=== PATIENT | male | born 1960 | race Caucasian/White ===

== ENCOUNTER 2019-03-17 17:48 | Inpatient (IN) | payer MEDICAID ==
[~2019-03-17] VITALS: Ht 177.8 cm; Wt 86.3 kg
[2019-03-17 18:49] LABS: BASOPHILS % (AUTO) 0.2 % (0-1); EOSINOPHILS % (AUTO) 0.2 % (0-6); HEMATOCRIT 37.1 % (42.0-52.0); HEMOGLOBIN 12.6 g/dl (14.0-17.9); LYMPHOCYTES # (AUTO) 1.6 X10'3 (1.1-4.8); LYMPHOCYTES % (AUTO) 7.7 % (21-51); MEAN CORPUSCULAR HEMOGLOBIN 30.8 PG (27.0-31.0); MEAN CORPUSCULAR VOLUME 90.6 FL (78-98); MEAN PLATELET VOLUME 7.2 FL (7.4-10.4); MONOCYTES # (AUTO) 1.3 X10'3 (0-0.9); MONOCYTES % (AUTO) 6.6 % (2-12); NEUTROPHILS # (AUTO) 17.4 X10'3 (1.8-7.7); NEUTROPHILS % (AUTO) 85.3 % (42-75); PLATELET COUNT 349 X10'3 (140-440); RED CELL DISTRIBUTION WIDTH 13.4 % (11.5-14.5); WHITE BLOOD COUNT 20.3 X10'3 (4.5-11.0)
[2019-03-17 18:59] LABS: ALANINE AMINOTRANSFERASE 13 U/L (12-78); ALBUMIN 2.8 G/DL (3.4-5.0); ALBUMIN/GLOBULIN RATIO 0.6 (1.1-1.5); ALKALINE PHOSPHATASE 133 IU/L (46-116); ANION GAP 9 (8-16); ASPARTATE AMINO TRANSFERASE 10 U/L (10-37); BILIRUBIN,TOTAL 0.3 MG/DL (0.1-1.0); BLOOD UREA NITROGEN 8 MG/DL (7-18); BUN/CREATININE RATIO 9.6 (5.4-32.0); CALCIUM 8.9 MG/DL (8.5-10.1); CHLORIDE 96 MMOL/L (99-107); CREATININE 0.83 MG/DL (0.60-1.10); GLUCOSE 130 MG/DL (70-104); POTASSIUM 3.5 MMOL/L (3.5-5.1); SODIUM 130 MMOL/L (135-145); TOTAL CARBON DIOXIDE 25.2 MMOL/L (24-32); TOTAL PROTEIN 7.2 G/DL (6.4-8.2); eGFR > 90 ML/MIN
[2019-03-17 19:01] LABS: PARTIAL THROMBOPLASTIN TIME 34 SECONDS (22-32)
[2019-03-17 19:24] LABS: CLARITY,URINE CLEAR (Clear); COLOR,URINE YELLOW (Yellow); GLUCOSE, URINE NEGATIVE (Neg); KETONES,URINE NEGATIVE (Neg); LEUKOCYTE ESTERASE ,URINE NEGATIVE (Neg); NITRITES, URINE NEGATIVE (Neg); OCCULT BLOOD,URINE NEGATIVE (Neg); PH,URINE 7.5 (4.8-8.0); PROTEIN,URINE TRACE mg/dl (Neg)
[2019-03-17 19:28] LABS: UA COLLECTION TYPE NON-SPECIFIED
[2019-03-17 19:34] LABS: BACTERIA,URINE FEW /HPF (Neg); RBC,URINE NONE SEEN /HPF (0-2); WBC,URINE 0-4 /HPF (0-4)
[2019-03-17 19:35] LABS: MUCUS STRANDS FEW /LPF (Neg); SQUAMOUS EPITHELIAL CELL,UR FEW /LPF (FEW)
[2019-03-17] MEDS ORDERED: LIDOcaine 1% w/epiNEPHrine 1:200,000 30ml vial IM ONE (19:55)
[2019-03-17] MEDS ORDERED: TETanus/Pertussis (Acell)/Diphther VAC/PF (Tdap-Adult) 0.5ml syringe IM ONE (19:55)
[2019-03-17] MEDS ORDERED: normal saline 1000ML IV soln IVB ONE (19:55)
[2019-03-17] MEDS ORDERED: piperacillin/tazo 4.5gm/100ml 100 ML IV STA (20:03)
[2019-03-17] MEDS ORDERED: iohexol 300mg/ml 100ml inj. ONE (20:08)
[2019-03-17] MEDS ORDERED: VANCOmycin 1250MG/NS 250ml Bag 250 ML IV ONE (20:15)
[2019-03-17] MEDS ORDERED: ringers solution, lacted 1,000 ML IV SCH (21:02)
[2019-03-17] MEDS ORDERED: magnesium hydroxide 30ml (MOM) UD suspension PO PRN (21:05)
[2019-03-17] MEDS ORDERED: ondansetron/PF 4mg/2ml inj IV PRN (21:05)
[2019-03-17] MEDS ORDERED: meperidine/PF 25mg/ml syringe IV PRN ×3 (21:05)
[2019-03-17] MEDS ORDERED: morphine 4 MG/ML inj SYRINge IV PRN ×2 (21:05)
[2019-03-17] MEDS ORDERED: proCHLORperazine 10 MG/2 ml inj IV PRN (21:05)
[2019-03-17] MEDS ORDERED: fentaNYL/PF 50MCG/1 ML 2ML syringe ONE (21:43)
[2019-03-17] MEDS ORDERED: midazolam 2 mg/2 ml injection ONE (21:43)
[2019-03-17] MEDS ORDERED: LIDOcaine 2% (20mg/ml) 5ml vial ONE (21:44)
[2019-03-17] MEDS ORDERED: propofol inj 20 ML IV ONE (22:17)
[2019-03-17] MEDS ORDERED: glycopyrrolate 0.2mg/ml inj ONE (22:17)
[2019-03-17] MEDS ORDERED: neostigmine methylsulfate 1 MG/ML 10ml vial ONE (22:17)
[2019-03-17 22:30] VITALS: BP 137/81
[2019-03-17 22:45] VITALS: BP 149/80
[2019-03-17 23:00] VITALS: BP 106/81
[2019-03-17 23:15] VITALS: BP 136/80
[2019-03-17 23:30] VITALS: BP 146/82
[2019-03-18] VITALS (17 sets, daily range): BP systolic 113–162; BP diastolic 69–88
[2019-03-18] MEDS: piperacillin/tazo 3.375gm/50ml 50 ML IV SCH ×4 (02:34→20:38)
[2019-03-18 04:30] LABS: BASOPHILS # (AUTO) 0.1 X10'3 (0-0.2); BASOPHILS % (AUTO) 0.3 % (0-1); EOSINOPHILS # (AUTO) 0.2 X10'3 (0-0.9); EOSINOPHILS % (AUTO) 0.8 % (0-6); HEMATOCRIT 35.6 % (42.0-52.0); MEAN CORPUSCULAR HEMOGLOBIN 30.2 PG (27.0-31.0); MEAN CORPUSCULAR HGB CONC 33.8 g/dL (33.0-36.5); MEAN CORPUSCULAR VOLUME 89.3 FL (78-98); MEAN PLATELET VOLUME 7.1 FL (7.4-10.4); MONOCYTES # (AUTO) 1.2 X10'3 (0-0.9); MONOCYTES % (AUTO) 6.1 % (2-12); NEUTROPHILS # (AUTO) 16.5 X10'3 (1.8-7.7); NEUTROPHILS % (AUTO) 82.8 % (42-75); PLATELET COUNT 322 X10'3 (140-440); RED BLOOD COUNT 3.99 X10'6 (4.70-6.10); RED CELL DISTRIBUTION WIDTH 13.7 % (11.5-14.5); WHITE BLOOD COUNT 19.9 X10'3 (4.5-11.0)
[2019-03-18 04:40] LABS: ALBUMIN 2.2 G/DL (3.4-5.0); ANION GAP 6 (8-16); BLOOD UREA NITROGEN 6 MG/DL (7-18); CALCIUM 8.5 MG/DL (8.5-10.1); CHLORIDE 105 MMOL/L (99-107); CREATININE 0.67 MG/DL (0.60-1.10); GLUCOSE 88 MG/DL (70-104); SODIUM 136 MMOL/L (135-145); TOTAL CARBON DIOXIDE 24.6 MMOL/L (24-32); eGFR > 90 ML/MIN
[2019-03-18] MEDS: VANCOmycin 1250MG/NS 250ml Bag 250 ML IV SCH ×3 (07:42→22:56)
[2019-03-18] MEDS ORDERED: IBUP200C5 PO (09:20)
[2019-03-18] MEDS ORDERED: NAPR220T67 PO (09:20)
--- NOTE | 2019-03-18 12:09 | NUR ---
patient doing well, pain is well controlled without medication. orders received to transfer this patient to the surgical floor without tele.
[2019-03-18] MEDS ORDERED: NO HOME MEDS (12:54)
--- NOTE | 2019-03-18 14:24 | NUR ---
Problems reprioritized. Patient report given, questions answered & plan of care reviewed with coil spring assembler of bed 349A.
--- NOTE | 2019-03-18 14:58 | NUR ---
transferred patient to room 349 A with all belongings
--- NOTE | 2019-03-18 18:15 | NUR ---
Problems reprioritized. Patient report given, questions answered & plan of care reviewed with Shayna RN.
[2019-03-18] MEDS: lactobacillus rhamnosus 10,000 MMU CELLS/CAPSULE PO SCH (20:39)
[2019-03-18] MEDS: naproxen 500mg tablet PO PRN (23:17)
[2019-03-19] VITALS: BP 150/77
[2019-03-19] MEDS: piperacillin/tazo 3.375gm/50ml 50 ML IV SCH ×4 (02:14→20:09)
[2019-03-19] MEDS ORDERED: VANCOMYCIN LEVEL IV ONE (05:30)
--- NOTE | 2019-03-19 06:18 | NUR ---
Patient in room [facility] 349. I have received report from SOLOMON Corral and had the opportunity to ask questions and assume patient care.
[2019-03-19] MEDS: VANCOmycin 1250MG/NS 250ml Bag 250 ML IV SCH ×3 (06:55→22:50)
[2019-03-19 07:20] VITALS: BP 153/85
[2019-03-19] MEDS: lactobacillus rhamnosus 10,000 MMU CELLS/CAPSULE PO SCH ×2 (08:31→20:09)
[2019-03-19 11:18] VITALS: BP 150/82
--- NOTE | 2019-03-19 12:06 | NUR ---
dressing to perineal area changed per written orders
[2019-03-19 13:38] LABS: BASOPHILS # (AUTO) 0.1 X10'3 (0-0.2); BASOPHILS % (AUTO) 0.7 % (0-1); EOSINOPHILS # (AUTO) 0.2 X10'3 (0-0.9); EOSINOPHILS % (AUTO) 2.8 % (0-6); HEMATOCRIT 35.4 % (42.0-52.0); HEMOGLOBIN 12.2 g/dl (14.0-17.9); LYMPHOCYTES # (AUTO) 1.5 X10'3 (1.1-4.8); LYMPHOCYTES % (AUTO) 17.3 % (21-51); MEAN CORPUSCULAR HEMOGLOBIN 30.9 PG (27.0-31.0); MEAN CORPUSCULAR HGB CONC 34.5 g/dL (33.0-36.5); MEAN CORPUSCULAR VOLUME 89.5 FL (78-98); MEAN PLATELET VOLUME 7.3 FL (7.4-10.4); MONOCYTES # (AUTO) 0.7 X10'3 (0-0.9); MONOCYTES % (AUTO) 8.6 % (2-12); NEUTROPHILS # (AUTO) 5.9 X10'3 (1.8-7.7); NEUTROPHILS % (AUTO) 70.6 % (42-75); PLATELET COUNT 351 X10'3 (140-440); RED BLOOD COUNT 3.95 X10'6 (4.70-6.10); RED CELL DISTRIBUTION WIDTH 13.4 % (11.5-14.5); WHITE BLOOD COUNT 8.4 X10'3 (4.5-11.0)
[2019-03-19 13:46] LABS: ALANINE AMINOTRANSFERASE 14 U/L (12-78); ALBUMIN 2.3 G/DL (3.4-5.0); ALBUMIN/GLOBULIN RATIO 0.5 (1.1-1.5); ALKALINE PHOSPHATASE 117 IU/L (46-116); ANION GAP 6 (8-16); ASPARTATE AMINO TRANSFERASE 14 U/L (10-37); BILIRUBIN,TOTAL 0.3 MG/DL (0.1-1.0); BLOOD UREA NITROGEN 11 MG/DL (7-18); BUN/CREATININE RATIO 10.9 (5.4-32.0); CALCIUM 8.6 MG/DL (8.5-10.1); CHLORIDE 105 MMOL/L (99-107); CREATININE 1.01 MG/DL (0.60-1.10); GLUCOSE 117 MG/DL (70-104); POTASSIUM 3.7 MMOL/L (3.5-5.1); SODIUM 137 MMOL/L (135-145); TOTAL CARBON DIOXIDE 26.5 MMOL/L (24-32); TOTAL PROTEIN 6.8 G/DL (6.4-8.2); eGFR 76 ML/MIN
--- NOTE | 2019-03-19 18:10 | NUR ---
Patient in room [facility] 349. I have received report from Kari CARBAJAL and had the opportunity to ask questions and assume patient care.
--- NOTE | 2019-03-19 18:44 | NUR ---
Problems reprioritized. Patient report given, questions answered & plan of care reviewed with SOLOMON Faye.
[2019-03-19 20:00] VITALS: BP 163/77
[2019-03-20] VITALS: BP 154/84
[2019-03-20] MEDS: naproxen 500mg tablet PO PRN (00:02)
[2019-03-20] MEDS: piperacillin/tazo 3.375gm/50ml 50 ML IV SCH ×4 (02:22→20:25)
[2019-03-20] MEDS: VANCOmycin 1250MG/NS 250ml Bag 250 ML IV SCH ×2 (05:27→14:09)
--- NOTE | 2019-03-20 06:10 | NUR ---
Patient in room [facility] 349. I have received report from SOLOMON Faye and had the opportunity to ask questions and assume patient care.
[2019-03-20 06:11] LABS: BASOPHILS # (AUTO) 0.1 X10'3 (0-0.2); BASOPHILS % (AUTO) 0.7 % (0-1); EOSINOPHILS # (AUTO) 0.4 X10'3 (0-0.9); EOSINOPHILS % (AUTO) 4.1 % (0-6); HEMATOCRIT 34.6 % (42.0-52.0); LYMPHOCYTES # (AUTO) 1.9 X10'3 (1.1-4.8); LYMPHOCYTES % (AUTO) 21.4 % (21-51); MEAN CORPUSCULAR HEMOGLOBIN 30.9 PG (27.0-31.0); MEAN CORPUSCULAR HGB CONC 34.6 g/dL (33.0-36.5); MEAN CORPUSCULAR VOLUME 89.3 FL (78-98); MEAN PLATELET VOLUME 7.5 FL (7.4-10.4); MONOCYTES % (AUTO) 11.2 % (2-12); NEUTROPHILS # (AUTO) 5.6 X10'3 (1.8-7.7); NEUTROPHILS % (AUTO) 62.6 % (42-75); PLATELET COUNT 338 X10'3 (140-440); RED BLOOD COUNT 3.88 X10'6 (4.70-6.10); RED CELL DISTRIBUTION WIDTH 13.5 % (11.5-14.5)
[2019-03-20 06:30] VITALS: BP 158/91
--- NOTE | 2019-03-20 06:30 | NUR ---
Problems reprioritized. Patient report given, questions answered & plan of care reviewed with Dulce RN.
[2019-03-20 06:44] LABS: ALANINE AMINOTRANSFERASE 16 U/L (12-78); ALBUMIN 2.2 G/DL (3.4-5.0); ALBUMIN/GLOBULIN RATIO 0.5 (1.1-1.5); ALKALINE PHOSPHATASE 120 IU/L (46-116); ANION GAP 10 (8-16); ASPARTATE AMINO TRANSFERASE 21 U/L (10-37); BILIRUBIN,TOTAL 0.4 MG/DL (0.1-1.0); BLOOD UREA NITROGEN 12 MG/DL (7-18); BUN/CREATININE RATIO 7.8 (5.4-32.0); CALCIUM 8.4 MG/DL (8.5-10.1); CHLORIDE 106 MMOL/L (99-107); CREATININE 1.53 MG/DL (0.60-1.10); GLUCOSE 94 MG/DL (70-104); POTASSIUM 3.6 MMOL/L (3.5-5.1); SODIUM 140 MMOL/L (135-145); TOTAL CARBON DIOXIDE 23.8 MMOL/L (24-32); TOTAL PROTEIN 6.4 G/DL (6.4-8.2); eGFR 47 ML/MIN
[2019-03-20] MEDS: lactobacillus rhamnosus 10,000 MMU CELLS/CAPSULE PO SCH ×2 (08:10→20:24)
[2019-03-20] MEDS ORDERED: acetaminophen 325mg tablet PO PRN (10:20)
[2019-03-20 11:30] VITALS: BP 160/85
--- NOTE | 2019-03-20 12:00 | NUR ---
Informed MD of pt's BPs elevated. No orders received.
[2019-03-20] MEDS ORDERED: VANCOMYCIN LEVEL IV ONE (13:30)
[2019-03-20] MEDS: normal saline 1000ml 1,000 ML IV SCH (14:09)
--- NOTE | 2019-03-20 14:56 | NUR ---
Critical vanco trough. Vancomycin infusion stopped & discarded vanco bag as directed to do so by pharmacist.
[2019-03-20 15:02] LABS: CLARITY,URINE CLEAR (Clear); COLOR,URINE STRAW (Yellow); GLUCOSE, URINE NEGATIVE (Neg); KETONES,URINE NEGATIVE (Neg); LEUKOCYTE ESTERASE ,URINE NEGATIVE (Neg); NITRITES, URINE NEGATIVE (Neg); OCCULT BLOOD,URINE NEGATIVE (Neg); PH,URINE 6.5 (4.8-8.0); PROTEIN,URINE NEGATIVE (Neg)
[2019-03-20 15:04] LABS: UA COLLECTION TYPE NON-SPECIFIED
[2019-03-20 15:44] LABS: UA EOSINOPHILS NO EOS /HPF
--- NOTE | 2019-03-20 18:35 | NUR ---
Problems reprioritized. Patient report given, questions answered & plan of care reviewed with SOLOMON Kent.
--- NOTE | 2019-03-20 18:44 | NUR ---
Received report from SOLOMON Cardona. Patient is awake and alert on room air, in no apparent distress. Call light and items of frequent use within reach. Will continue to monitor.
[2019-03-20 20:00] VITALS: BP 168/83
[2019-03-21] VITALS: BP 166/81
[2019-03-21] MEDS: normal saline 1000ml 1,000 ML IV SCH ×3 (00:46→22:21)
[2019-03-21] MEDS: piperacillin/tazo 3.375gm/50ml 50 ML IV SCH ×4 (02:22→20:23)
[2019-03-21] MEDS: VANCOMYCIN 750MG IV in NS 250 ML IV SCH ×3 (05:10→20:55)
[2019-03-21 05:19] LABS: BASOPHILS % (AUTO) 0.6 % (0-1); EOSINOPHILS # (AUTO) 0.4 X10'3 (0-0.9); HEMATOCRIT 33.7 % (42.0-52.0); HEMOGLOBIN 11.5 g/dl (14.0-17.9); LYMPHOCYTES # (AUTO) 1.8 X10'3 (1.1-4.8); LYMPHOCYTES % (AUTO) 24.6 % (21-51); MEAN CORPUSCULAR HEMOGLOBIN 30.7 PG (27.0-31.0); MEAN CORPUSCULAR HGB CONC 34.1 g/dL (33.0-36.5); MONOCYTES # (AUTO) 0.9 X10'3 (0-0.9); MONOCYTES % (AUTO) 12.3 % (2-12); NEUTROPHILS # (AUTO) 4.2 X10'3 (1.8-7.7); NEUTROPHILS % (AUTO) 57.5 % (42-75); PLATELET COUNT 338 X10'3 (140-440); RED BLOOD COUNT 3.74 X10'6 (4.70-6.10); RED CELL DISTRIBUTION WIDTH 13.3 % (11.5-14.5); WHITE BLOOD COUNT 7.2 X10'3 (4.5-11.0)
[2019-03-21 05:25] LABS: ALANINE AMINOTRANSFERASE 16 U/L (12-78); ALBUMIN 2.2 G/DL (3.4-5.0); ALBUMIN/GLOBULIN RATIO 0.5 (1.1-1.5); ALKALINE PHOSPHATASE 95 IU/L (46-116); ANION GAP 10 (8-16); ASPARTATE AMINO TRANSFERASE 17 U/L (10-37); BILIRUBIN,TOTAL 0.3 MG/DL (0.1-1.0); BLOOD UREA NITROGEN 10 MG/DL (7-18); BUN/CREATININE RATIO 6.1 (5.4-32.0); CALCIUM 8.4 MG/DL (8.5-10.1); CHLORIDE 107 MMOL/L (99-107); CREATININE 1.64 MG/DL (0.60-1.10); GLUCOSE 99 MG/DL (70-104); POTASSIUM 3.6 MMOL/L (3.5-5.1); SODIUM 140 MMOL/L (135-145); TOTAL CARBON DIOXIDE 23.5 MMOL/L (24-32); TOTAL PROTEIN 6.4 G/DL (6.4-8.2); eGFR 44 ML/MIN
--- NOTE | 2019-03-21 06:20 | NUR ---
Patient in room [facility] 349. I have received report from SOLOMON Kent and had the opportunity to ask questions and assume patient care.
[2019-03-21 06:30] VITALS: BP 187/93
--- NOTE | 2019-03-21 06:30 | NUR ---
Problems reprioritized. Patient report given, questions answered & plan of care reviewed with SOLOMON Cardona.
[2019-03-21] MEDS: lactobacillus rhamnosus 10,000 MMU CELLS/CAPSULE PO SCH ×2 (08:44→20:23)
[2019-03-21] MEDS: lisinopril 20mg tablet PO SCH (08:44)
[2019-03-21 11:30] VITALS: BP 162/91
--- NOTE | 2019-03-21 18:25 | NUR ---
Problems reprioritized. Patient report given, questions answered & plan of care reviewed with SOLOMON Gan.
--- NOTE | 2019-03-21 18:30 | NUR ---
Patient in room [facility] 349. I have received report from SOLOMON QUIROGA and had the opportunity to ask questions and assume patient care. Addendum: 03/21/19 at 1908 by Christopher Mitchell RN Amended: Links added.
[2019-03-21 20:00] VITALS: BP_SYST 182; BP_SYST 205; BP_DIAS 105; BP_DIAS 91
[2019-03-21 21:19] VITALS: BP 160/88
[2019-03-21] MEDS ORDERED: temazepam 15mg capsule PO PRN (21:25)
[2019-03-22 00:33] VITALS: BP 147/77
[2019-03-22] MEDS: piperacillin/tazo 3.375gm/50ml 50 ML IV SCH ×3 (01:46→13:28)
[2019-03-22] MEDS ORDERED: VANCOMYCIN LEVEL IV ONE (04:30)
[2019-03-22 05:20] LABS: BASOPHILS # (AUTO) 0.1 X10'3 (0-0.2); BASOPHILS % (AUTO) 0.7 % (0-1); EOSINOPHILS # (AUTO) 0.4 X10'3 (0-0.9); EOSINOPHILS % (AUTO) 4.6 % (0-6); HEMOGLOBIN 11.7 g/dl (14.0-17.9); LYMPHOCYTES # (AUTO) 1.9 X10'3 (1.1-4.8); LYMPHOCYTES % (AUTO) 23.1 % (21-51); MEAN CORPUSCULAR HEMOGLOBIN 30.7 PG (27.0-31.0); MEAN CORPUSCULAR HGB CONC 34.4 g/dL (33.0-36.5); MEAN CORPUSCULAR VOLUME 89.1 FL (78-98); MEAN PLATELET VOLUME 6.6 FL (7.4-10.4); MONOCYTES # (AUTO) 1.1 X10'3 (0-0.9); MONOCYTES % (AUTO) 12.9 % (2-12); NEUTROPHILS % (AUTO) 58.7 % (42-75); PLATELET COUNT 327 X10'3 (140-440); RED BLOOD COUNT 3.82 X10'6 (4.70-6.10); RED CELL DISTRIBUTION WIDTH 13.3 % (11.5-14.5); WHITE BLOOD COUNT 8.4 X10'3 (4.5-11.0)
[2019-03-22 05:32] LABS: ALANINE AMINOTRANSFERASE 16 U/L (12-78); ALBUMIN 2.2 G/DL (3.4-5.0); ALBUMIN/GLOBULIN RATIO 0.5 (1.1-1.5); ALKALINE PHOSPHATASE 94 IU/L (46-116); ANION GAP 9 (8-16); ASPARTATE AMINO TRANSFERASE 14 U/L (10-37); BILIRUBIN,TOTAL 0.3 MG/DL (0.1-1.0); BLOOD UREA NITROGEN 12 MG/DL (7-18); BUN/CREATININE RATIO 7.4 (5.4-32.0); CALCIUM 8.5 MG/DL (8.5-10.1); CHLORIDE 108 MMOL/L (99-107); CREATININE 1.63 MG/DL (0.60-1.10); GLUCOSE 87 MG/DL (70-104); POTASSIUM 3.6 MMOL/L (3.5-5.1); SODIUM 142 MMOL/L (135-145); TOTAL CARBON DIOXIDE 25.3 MMOL/L (24-32); TOTAL PROTEIN 6.4 G/DL (6.4-8.2); eGFR 44 ML/MIN
[2019-03-22] MEDS: VANCOMYCIN 750MG IV in NS 250 ML IV SCH (05:38)
[2019-03-22 05:51] LABS: VANCOMYCIN,TROUGH 30.7 UG/ML (6.0-14.0)
--- NOTE | 2019-03-22 06:30 | NUR ---
Patient in room [facility] 349. I have received report from Elvia CARBAJAL and had the opportunity to ask questions and assume patient care.
--- NOTE | 2019-03-22 06:38 | NUR ---
Problems reprioritized. Patient report given, questions answered & plan of care reviewed with SOLOMON Crouch. Addendum: 03/22/19 at 0639 by Christopher Mitchell RN Amended: Links added.
[2019-03-22] MEDS: lactobacillus rhamnosus 10,000 MMU CELLS/CAPSULE PO SCH (08:28)
[2019-03-22] MEDS: lisinopril 20mg tablet PO SCH (08:30)
[2019-03-22 09:04] VITALS: BP 178/93
[2019-03-22 11:00] VITALS: BP 187/95
[2019-03-22] MEDS: normal saline 1000ml 1,000 ML IV SCH (13:28)
--- NOTE | 2019-03-22 16:00 | NUR ---
[facility] [place] [facility] All question were asked and adressed at this time. Patient left with bilateral upper arm IV at this time. Patient left with all belonging, and was transported to TCU by Ana cargo at this time.
[2019-03-22] MEDS ORDERED: VANCOMYCIN 750MG IV in NS 250 ML IV SCH (20:00)
[2019-03-24] MEDS ORDERED: VANCOMYCIN LEVEL IV ONE (07:30)
== END 2019-03-22 15:25 | DRG 720 ==
LOC: ER 17:49 → CICU 2S 21:32 → SUR 3N 03-18 14:50
PROVIDERS: ADMIT Internal Medicine Critical Care Medicine; ATTEND Hospitalist
PROC: 0JBC0ZZ Excision of Pelvic Region Subcutaneous Tissue and Fascia, Open Approach (ICD-10-PCS; 2019-03-17)
PROC: BW2G1ZZ Computerized Tomography (CT Scan) of Pelvic Region using Low Osmolar Contrast (ICD-10-PCS; 2019-03-17)
PROC: 0JBB0ZZ Excision of Perineum Subcutaneous Tissue and Fascia, Open Approach (ICD-10-PCS; principal; 2019-03-17 21:37)
DX: A41.9 Sepsis, unspecified organism (principal); N17.9 Acute kidney failure, unspecified; L02.215 Cutaneous abscess of perineum; K61.1 Rectal abscess; I10 Essential (primary) hypertension; F10.20 Alcohol dependence, uncomplicated; L02.31 Cutaneous abscess of buttock; L03.317 Cellulitis of buttock
CPT/HCPCS: 36415; 71045; 72193; 80048; 80053; 80202; 81001; 81003; 82570; 83605; 84145; 84300; 85025; 85610; 85730; 87040; 87070; 87075; 87076; 87077; 87081; 87102; 87185; 87186; 87207; 96360; 96361; 99285; A4618; A6446; A7000; G0378; J2001; J2250; J2543; J2704; J2710; J3010; J3370; J3490; J7030; J7050; J7120; Q9967

== ENCOUNTER 2019-06-06 12:09 | Inpatient (IN) | payer MEDICAID ==
[~2019-06-06] VITALS: Ht 177.8 cm; Wt 88.0 kg
[2019-06-06] VITALS (8 sets, daily range): BP systolic 101–142; BP diastolic 46–87
[~2019-06-06 12:09] MED LIST: NO HOME MEDS
[2019-06-06 15:31] LABS: BASOPHILS # (AUTO) 0.1 X10'3 (0-0.2); BASOPHILS % (AUTO) 0.6 % (0-1); EOSINOPHILS # (AUTO) 0.1 X10'3 (0-0.9); EOSINOPHILS % (AUTO) 0.3 % (0-6); HEMATOCRIT 31.9 % (42.0-52.0); HEMOGLOBIN 10.9 g/dl (14.0-17.9); LYMPHOCYTES # (AUTO) 2.1 X10'3 (1.1-4.8); LYMPHOCYTES % (AUTO) 10.7 % (21-51); MEAN CORPUSCULAR HEMOGLOBIN 30.4 PG (27.0-31.0); MEAN CORPUSCULAR HGB CONC 34.2 g/dL (33.0-36.5); MEAN CORPUSCULAR VOLUME 88.7 FL (78-98); MEAN PLATELET VOLUME 6.7 FL (7.4-10.4); MONOCYTES # (AUTO) 1.4 X10'3 (0-0.9); MONOCYTES % (AUTO) 7.2 % (2-12); NEUTROPHILS # (AUTO) 16.1 X10'3 (1.8-7.7); NEUTROPHILS % (AUTO) 81.2 % (42-75); PLATELET COUNT 418 X10'3 (140-440); RED BLOOD COUNT 3.59 X10'6 (4.70-6.10); WHITE BLOOD COUNT 19.8 X10'3 (4.5-11.0)
[2019-06-06 15:42] LABS: PARTIAL THROMBOPLASTIN TIME 31 SECONDS (22-32)
[2019-06-06 15:46] LABS: ALANINE AMINOTRANSFERASE 18 U/L (12-78); ALBUMIN 2.7 G/DL (3.4-5.0); ALBUMIN/GLOBULIN RATIO 0.5 (1.1-1.5); ALKALINE PHOSPHATASE 160 IU/L (46-116); ANION GAP 8 (8-16); ASPARTATE AMINO TRANSFERASE 17 U/L (10-37); BILIRUBIN,TOTAL 0.3 MG/DL (0.1-1.0); BLOOD UREA NITROGEN 28 MG/DL (7-18); BUN/CREATININE RATIO 28.9 (5.4-32.0); CALCIUM 9.6 MG/DL (8.5-10.1); CHLORIDE 94 MMOL/L (99-107); CREATININE 0.97 MG/DL (0.60-1.10); GLUCOSE 115 MG/DL (70-104); MAGNESIUM 1.9 MG/DL (1.5-2.4); POTASSIUM 4.9 MMOL/L (3.5-5.1); SODIUM 127 MMOL/L (135-145); TOTAL CARBON DIOXIDE 25.1 MMOL/L (24-32); TOTAL PROTEIN 7.9 G/DL (6.4-8.2); eGFR 80 ML/MIN
[2019-06-06] MEDS ORDERED: vancomycin/NS 1 GM ADD-VANTAGE 250 ML IV ONE (16:10)
[2019-06-06] MEDS ORDERED: piperacillin/tazo 3.375gm/50ml 50 ML IV ONE (16:10)
[2019-06-06] MEDS ORDERED: OMEP-50 PO ×2 (16:58→16:59)
[2019-06-06] MEDS ORDERED: LISI-600 PO ×2 (16:58→16:59)
[2019-06-06 17:25] LABS: CLARITY,URINE CLEAR (Clear); GLUCOSE, URINE NEGATIVE (Neg); KETONES,URINE NEGATIVE (Neg); LEUKOCYTE ESTERASE ,URINE NEGATIVE (Neg); NITRITES, URINE NEGATIVE (Neg); OCCULT BLOOD,URINE NEGATIVE (Neg); PH,URINE 7.5 (4.8-8.0); PROTEIN,URINE TRACE mg/dl (Neg)
[2019-06-06 17:28] LABS: COLOR,URINE DARK YELLOW (Yellow); UA COLLECTION TYPE NON-SPECIFIED
[2019-06-06] MEDS ORDERED: magnesium 4gm in 100ml NS 100 ML IV PRN (17:40)
[2019-06-06] MEDS ORDERED: acetaminophen 325mg tablet PO PRN ×2 (17:40)
[2019-06-06] MEDS ORDERED: HYDROcodone/acetaminophen 10/325mg tab PO PRN ×2 (17:40→22:50)
[2019-06-06] MEDS ORDERED: diphenhydrAMINE 25mg capsule PO PRN (17:40)
[2019-06-06] MEDS ORDERED: magnesium hydroxide 30ml (MOM) UD suspension PO PRN (17:40)
[2019-06-06] MEDS ORDERED: mag hydrox/Alum hydrox/simeth 30ml oral suspension PO PRN (17:40)
[2019-06-06] MEDS ORDERED: ondansetron/PF 4mg/2ml inj IV PRN ×4 (17:40→22:50)
[2019-06-06] MEDS: K and/or MAG REPLACEMENT MC SCH (17:40)
[2019-06-06] MEDS ORDERED: potassium Cl 20 mEq SR tablet PO PRN ×2 (17:40)
[2019-06-06] MEDS ORDERED: potassium CL 10mEq/100ml bag 100 ML IV PRN ×2 (17:40)
[2019-06-06] MEDS ORDERED: magnesium 2GM in 50ml NS 50 ML IV PRN (17:40)
[2019-06-06] MEDS ORDERED: morphine 2 MG/ML inj. syringe IV PRN ×2 (17:40)
[2019-06-06] MEDS ORDERED: magnesium Cl slow-release 64mg tablet PO PRN (17:40)
[2019-06-06 17:41] LABS: BACTERIA,URINE NONE SEEN /HPF (Neg); RBC,URINE NONE SEEN /HPF (0-2); SQUAMOUS EPITHELIAL CELL,UR FEW /LPF (FEW); WBC,URINE NONE SEEN /HPF (0-4)
[2019-06-06] MEDS ORDERED: VANCOMYCIN LEVEL PO ONE (17:50)
[2019-06-06] MEDS ORDERED: VANCOmycin 1250MG/NS 250ml Bag 250 ML IV SCH (18:00)
[2019-06-06 18:40] LABS: HEMOGLOBIN A1C 6.1 % (4.5-6.2)
--- NOTE | 2019-06-06 19:28 | NUR ---
Patient in room . I have received report from SOLOMON Tinajero and had the opportunity to ask questions and assume patient care.
[2019-06-06] MEDS: HYDROcodone/acetaminophen 5mg/325mg tablet PO PRN (20:27)
[2019-06-06] MEDS: normal saline 1000ml 1,000 ML IV SCH (20:28)
[2019-06-06] MEDS: heparin, porcine 5000 units/ml vial SQ SCH (20:29)
[2019-06-06] MEDS ORDERED: ringers solution, lacted 1,000 ML IV SCH ×2 (21:11→22:00)
[2019-06-06] MEDS ORDERED: proCHLORperazine 10 MG/2 ml inj IV PRN ×2 (21:15→22:00)
[2019-06-06] MEDS ORDERED: morphine 4 MG/ML inj SYRINge IV PRN ×4 (21:15→22:00)
[2019-06-06] MEDS ORDERED: meperidine/PF 25mg/ml syringe IV PRN ×6 (21:15→22:00)
--- NOTE | 2019-06-06 21:40 | NUR ---
Patient transported to OR with tech in bed.
[2019-06-06] MEDS ORDERED: desflurane 240ml liquid inh. IH ONE (21:50)
[2019-06-06] MEDS ORDERED: midazolam 2 mg/2 ml injection ONE (22:05)
[2019-06-06] MEDS ORDERED: fentaNYL/PF 50MCG/1 ML 2ML syringe ONE (22:05)
[2019-06-06] MEDS ORDERED: ketorolac trometh. 30mg/ml inj. ONE (22:43)
[2019-06-06] MEDS ORDERED: LIDOcaine 2% (20mg/ml) 5ml vial ONE (22:43)
[2019-06-06] MEDS ORDERED: propofol inj 20 ML IV ONE (22:43)
--- NOTE | 2019-06-06 22:55 | NUR ---
Received from OR via SURGICAL BED, accompanied by Anesthesiologist DR MCNAIR and report given by Anesthesiolgist. PT AROUSES EASILY PLACED ON O2 AND MONITOR, S/P I AND D OF PERIANAL ABCESS, GENERAL ANESTH, PT HAS IODODFORM PACKING WITH 4X4 COVERING WOUND AND MESH UNDERWEAR HOLD IT IN PLACE SMALL AMOUNT OF SANGUINOUS DRAINAGE NOTED, PT DENIES ANY PAIN OR NAUSEA WILL CONT TO ASSESS.
--- NOTE | 2019-06-06 23:25 | NUR ---
I have received report from Tracy sprayer machine and had the opportunity to ask questions and assume patient care.
--- NOTE | 2019-06-06 23:30 | NUR ---
Report called to receiving nurse. Transferred via SURGICL BED TO ROOM 350A Belongings . Special Issues communicated to receiving nurse.
[2019-06-07] VITALS (9 sets, daily range): BP systolic 98–137; BP diastolic 46–80
[2019-06-07] MEDS: piperacillin/tazo 3.375gm/50ml 50 ML IV SCH ×4 (00:11→23:56)
[2019-06-07] MEDS: VANCOmycin 1250MG/NS 250ml Bag 250 ML IV SCH ×3 (01:54→20:01)
[2019-06-07] MEDS: normal saline 1000ml 1,000 ML IV SCH ×3 (03:34→23:37)
[2019-06-07 05:22] LABS: BASOPHILS # (AUTO) 0.1 X10'3 (0-0.2); BASOPHILS % (AUTO) 0.7 % (0-1); EOSINOPHILS # (AUTO) 0.1 X10'3 (0-0.9); EOSINOPHILS % (AUTO) 0.9 % (0-6); HEMATOCRIT 29.2 % (42.0-52.0); HEMOGLOBIN 10.3 g/dl (14.0-17.9); LYMPHOCYTES # (AUTO) 1.6 X10'3 (1.1-4.8); LYMPHOCYTES % (AUTO) 13.4 % (21-51); MEAN CORPUSCULAR HGB CONC 35.2 g/dL (33.0-36.5); MEAN PLATELET VOLUME 7.1 FL (7.4-10.4); MONOCYTES # (AUTO) 0.9 X10'3 (0-0.9); MONOCYTES % (AUTO) 7.5 % (2-12); NEUTROPHILS % (AUTO) 77.5 % (42-75); PLATELET COUNT 355 X10'3 (140-440); RED BLOOD COUNT 3.31 X10'6 (4.70-6.10); RED CELL DISTRIBUTION WIDTH 14.3 % (11.5-14.5); WHITE BLOOD COUNT 11.6 X10'3 (4.5-11.0)
[2019-06-07 05:34] LABS: ALANINE AMINOTRANSFERASE 13 U/L (12-78); ALBUMIN 2.1 G/DL (3.4-5.0); ALBUMIN/GLOBULIN RATIO 0.5 (1.1-1.5); ALKALINE PHOSPHATASE 124 IU/L (46-116); ANION GAP 9 (8-16); ASPARTATE AMINO TRANSFERASE 16 U/L (10-37); BILIRUBIN,TOTAL 0.5 MG/DL (0.1-1.0); BLOOD UREA NITROGEN 25 MG/DL (7-18); BUN/CREATININE RATIO 28.1 (5.4-32.0); CALCIUM 8.9 MG/DL (8.5-10.1); CHLORIDE 99 MMOL/L (99-107); CHOL/HDL RATIO 5.1 (0.00-4.99); CHOLESTEROL 107 MG/DL (0-200); CREATININE 0.89 MG/DL (0.60-1.10); GLUCOSE 97 MG/DL (70-104); HDL CHOLESTEROL 21 MG/DL (35-60); LDL CHOLESTEROL 71 MG/DL (50-100); MAGNESIUM 1.9 MG/DL (1.5-2.4); POTASSIUM 4.4 MMOL/L (3.5-5.1); SODIUM 131 MMOL/L (135-145); TOTAL CARBON DIOXIDE 23.2 MMOL/L (24-32); TOTAL PROTEIN 6.5 G/DL (6.4-8.2); TRIGLYCERIDES 87 MG/DL (20-135); eGFR 88 ML/MIN
--- NOTE | 2019-06-07 06:43 | NUR ---
Problems reprioritized. Patient report given, questions answered & plan of care reviewed with SOLOMON Leblanc.
--- NOTE | 2019-06-07 07:11 | NUR ---
Patient in room [facility] 350. I have received report from Ольга CARBAJAL and had the opportunity to ask questions and assume patient care.
[2019-06-07] MEDS: K and/or MAG REPLACEMENT MC SCH (08:00)
[2019-06-07] MEDS: pantoprazole 40mg Tablet.DR PO SCH (08:42)
[2019-06-07] MEDS: lisinopril 20mg tablet PO SCH (08:43)
[2019-06-07] MEDS: heparin, porcine 5000 units/ml vial SQ SCH ×2 (08:45→19:08)
[2019-06-07] MEDS: HYDROcodone/acetaminophen 5mg/325mg tablet PO PRN (09:52)
--- NOTE | 2019-06-07 14:42 | NUR ---
Consult: Pt admitted with perineal abscess on right buttocks, now s/p I&D. Attempted visit at bedside to provide protein education, however pt was asleep. Written protein education handout and RD contact information left at bedside. PO intake 100% on a regular diet meeting nutrient needs at this time. Will continue to follow. Addendum: 06/07/19 at 1442 by Wing Shar SOLANO Amended: Links added. Addendum: 06/07/19 at [address] I have reviewed and agree with note by Clother In. Fawn Casey RD
[2019-06-07] MEDS ORDERED: VANCOMYCIN LEVEL PO ONE (17:30)
--- NOTE | 2019-06-07 18:40 | NUR ---
Patient in room [facility] 350. I have received report from SOLOMON WALLACE and had the opportunity to ask questions and assume patient care. PT ALERT AND ORIENTED, DISCUSSED PLAN OF CARE FOR NOC. VERBALIZES UNDERSTANDING. Addendum: 06/07/19 at 1858 by Christopher Mitchell RN Amended: Links added.
--- NOTE | 2019-06-07 19:03 | NUR ---
Problems reprioritized. Patient report given, questions answered & plan of care reviewed with Daria CARBAJAL.
--- NOTE | 2019-06-07 19:05 | NUR ---
PER PHARMACY GIVEN VANCO DOSE DUE AT 1800. VANCO TROUGH 19.2 Addendum: 06/07/19 at 1905 by Christopher Mitchell RN Amended: Links added.
[2019-06-07] MEDS: lactobacillus rhamnosus 10,000 MMU CELLS/CAPSULE PO SCH (19:07)
[2019-06-07] MEDS: HYDROcodone/acetaminophen 10/325mg tab PO PRN (23:56)
[2019-06-08] VITALS: BP 137/79
--- NOTE | 2019-06-08 01:59 | NUR ---
PT HAS SPECIMIN CONTAINER FOR U/A. PT WILL CALL WHEN VOIDS. Addendum: 06/08/19 at 0159 by Christopher Mitchell RN Amended: Links added.
--- NOTE | 2019-06-08 02:36 | NUR ---
U/A SENT TO LAB. Addendum: 06/08/19 at 0236 by Christopher Mitchell RN Amended: Links added.
[2019-06-08 02:40] LABS: CLARITY,URINE CLEAR (Clear); COLOR,URINE YELLOW (Yellow); GLUCOSE, URINE NEGATIVE (Neg); KETONES,URINE NEGATIVE (Neg); LEUKOCYTE ESTERASE ,URINE NEGATIVE (Neg); NITRITES, URINE NEGATIVE (Neg); OCCULT BLOOD,URINE NEGATIVE (Neg); PH,URINE 6.5 (4.8-8.0); PROTEIN,URINE NEGATIVE (Neg); UROBILINOGEN,URINE 0.2 E.U/dL (0.2-1.0)
[2019-06-08 02:46] LABS: UA COLLECTION TYPE VOIDED
[2019-06-08 03:20] LABS: URINE AMPHETAMINE SCREEN NEGATIVE (Neg); URINE BARBITUATE SCREEN NEGATIVE (Neg); URINE BENZODIAZEPINES SCREEN NEGATIVE (Neg); URINE CANNABINOID SCREEN POSITIVE (Neg); URINE COCAINE SCREEN NEGATIVE (Neg); URINE METHADONE SCREEN NEGATIVE (Neg); URINE OPIATE SCREEN POSITIVE (Neg); URINE PHENCYCLIDINE SCREEN NEGATIVE (Neg)
[2019-06-08] MEDS: VANCOmycin 1250MG/NS 250ml Bag 250 ML IV SCH ×2 (03:57→10:19)
[2019-06-08] MEDS: HYDROcodone/acetaminophen 10/325mg tab PO PRN (03:59)
[2019-06-08 05:45] LABS: BASOPHILS # (AUTO) 0.1 X10'3 (0-0.2); BASOPHILS % (AUTO) 0.8 % (0-1); EOSINOPHILS # (AUTO) 0.2 X10'3 (0-0.9); EOSINOPHILS % (AUTO) 2.7 % (0-6); HEMATOCRIT 30.1 % (42.0-52.0); HEMOGLOBIN 10.4 g/dl (14.0-17.9); LYMPHOCYTES # (AUTO) 1.8 X10'3 (1.1-4.8); LYMPHOCYTES % (AUTO) 22.1 % (21-51); MEAN CORPUSCULAR HEMOGLOBIN 30.6 PG (27.0-31.0); MEAN CORPUSCULAR HGB CONC 34.4 g/dL (33.0-36.5); MEAN CORPUSCULAR VOLUME 88.9 FL (78-98); MEAN PLATELET VOLUME 7.1 FL (7.4-10.4); MONOCYTES # (AUTO) 0.8 X10'3 (0-0.9); MONOCYTES % (AUTO) 10.3 % (2-12); NEUTROPHILS # (AUTO) 5.2 X10'3 (1.8-7.7); NEUTROPHILS % (AUTO) 64.1 % (42-75); PLATELET COUNT 388 X10'3 (140-440); RED BLOOD COUNT 3.39 X10'6 (4.70-6.10); RED CELL DISTRIBUTION WIDTH 14.4 % (11.5-14.5)
[2019-06-08 05:53] LABS: ALANINE AMINOTRANSFERASE 13 U/L (12-78); ALBUMIN 2.1 G/DL (3.4-5.0); ALBUMIN/GLOBULIN RATIO 0.5 (1.1-1.5); ALKALINE PHOSPHATASE 142 IU/L (46-116); ANION GAP 7 (8-16); ASPARTATE AMINO TRANSFERASE 18 U/L (10-37); BILIRUBIN,TOTAL 0.2 MG/DL (0.1-1.0); BLOOD UREA NITROGEN 12 MG/DL (7-18); BUN/CREATININE RATIO 13.3 (5.4-32.0); CALCIUM 8.8 MG/DL (8.5-10.1); CHLORIDE 102 MMOL/L (99-107); GLUCOSE 103 MG/DL (70-104); MAGNESIUM 1.9 MG/DL (1.5-2.4); SODIUM 134 MMOL/L (135-145); TOTAL CARBON DIOXIDE 24.7 MMOL/L (24-32); TOTAL PROTEIN 6.4 G/DL (6.4-8.2); eGFR 87 ML/MIN
--- NOTE | 2019-06-08 06:25 | NUR ---
Problems reprioritized. Patient report given, questions answered & plan of care reviewed with SOLOMON ROSENTHAL. Addendum: 06/08/19 at 0626 by Christopher Mitchell RN Amended: Links added.
--- NOTE | 2019-06-08 06:55 | NUR ---
Patient in room [facility] 350. I have received report from Elvia CARBAJAL and had the opportunity to ask questions and assume patient care.
[2019-06-08 07:00] VITALS: BP 122/79
[2019-06-08] MEDS: piperacillin/tazo 3.375gm/50ml 50 ML IV SCH ×2 (07:37→16:00)
[2019-06-08] MEDS: pantoprazole 40mg Tablet.DR PO SCH (07:44)
[2019-06-08] MEDS: lactobacillus rhamnosus 10,000 MMU CELLS/CAPSULE PO SCH (07:44)
[2019-06-08] MEDS: lisinopril 20mg tablet PO SCH (07:45)
[2019-06-08] MEDS: heparin, porcine 5000 units/ml vial SQ SCH (07:46)
[2019-06-08] MEDS: K and/or MAG REPLACEMENT MC SCH (08:00)
[2019-06-08 09:33] LABS: HIV ANTIBODY 1&2 RAPID NON-REACTIVE (Neg)
[2019-06-08 11:00] VITALS: BP 138/87
[2019-06-08 11:55] VITALS: BP 138/87
--- NOTE | 2019-06-08 12:20 | NUR ---
Patient in room [facility] 350. I have received report from Hannah RN student and had the opportunity to ask questions and assume patient care.
[2019-06-08] MEDS ORDERED: METR250T37 PO (12:30)
[2019-06-08] MEDS ORDERED: LACT1CAP26 PO (12:30)
[2019-06-08] MEDS ORDERED: LEVO750T46 PO (12:30)
--- NOTE | 2019-06-08 17:29 | NUR ---
patient seen by Dr Perdue and DR Maradiaga, . patient had washed out his wound x2in am. Is for DC. Showered self. All supplies given, and DC instructions. Patient DC home via private car with a friend to home. 1655hrs.
== END 2019-06-08 16:55 | disposition home health service (06) | DRG 223 ==
LOC: ER 12:12 → SUR 3N 17:37 → CMPBEDREQ 21:07
PROVIDERS: ADMIT Family Medicine; ATTEND Family Medicine
PROC: 0W9M0ZZ Drainage of Male Perineum, Open Approach (ICD-10-PCS; 2019-06-06)
PROC: 0D9P0ZZ Drainage of Rectum, Open Approach (ICD-10-PCS; principal; 2019-06-06 21:50)
DX: K61.2 Anorectal abscess (principal); E87.1 Hypo-osmolality and hyponatremia; F10.20 Alcohol dependence, uncomplicated; I10 Essential (primary) hypertension; K21.9 Gastro-esophageal reflux disease without esophagitis; R59.0 Localized enlarged lymph nodes; Z60.2 Problems related to living alone; F17.210 Nicotine dependence, cigarettes, uncomplicated; L02.215 Cutaneous abscess of perineum; L02.31 Cutaneous abscess of buttock; F12.90 Cannabis use, unspecified, uncomplicated; L02.214 Cutaneous abscess of groin; Z79.899 Other long term (current) drug therapy
CPT/HCPCS: 36415; 71045; 72192; 80053; 80061; 80202; 80305; 81001; 81003; 82948; 83036; 83605; 83735; 84145; 85025; 85610; 85730; 86703; 87040; 87070; 87075; 87077; 87081; 87102; 87186; 93005; 96365; 99284; A4618; A6266; A6446; A6449; A7000; G0378; J1644; J1885; J2001; J2175; J2250; J2543; J2704; J3010; J3370; J7030; J7120

== ENCOUNTER 2019-10-15 17:39 | Inpatient (IN) | payer MEDICAID ==
[~2019-10-15] VITALS: Ht 177.8 cm; Wt 86.4 kg
[~2019-10-15 17:39] MED LIST changes: +LACT1CAP26 PO; +LISI-600 PO; -NO HOME MEDS; +OMEP-50 PO
[2019-10-15] MEDS ORDERED: normal saline 1000ML IV soln IV ONE (18:25)
[2019-10-15] MEDS ORDERED: ondansetron/PF 4mg/2ml inj IV ONE (18:25)
[2019-10-15] MEDS ORDERED: morphine 4 MG/ML inj SYRINge IV ONE (18:25)
[2019-10-15] MEDS ORDERED: diphenhydrAMINE 50 mg/ml inj IV ONE (18:55)
--- NOTE | 2019-10-15 19:08 | NUR ---
Pt given 50 mg Benadryl after c/o itching after admin of Zofran and Morphine
[2019-10-15 19:12] LABS: HEMOGLOBIN 9.6 g/dl (14.0-17.9); MONOCYTES # (AUTO) 0.7 X10'3 (0-0.9)
[2019-10-15 19:14] LABS: BASOPHILS # (AUTO) 0.1 X10'3 (0-0.2); BASOPHILS % (AUTO) 0.7 % (0-1); EOSINOPHILS % (AUTO) 0.3 % (0-6); HEMATOCRIT 28.3 % (42.0-52.0); LYMPHOCYTES # (AUTO) 1.8 X10'3 (1.1-4.8); LYMPHOCYTES % (AUTO) 16.3 % (21-51); MEAN CORPUSCULAR HEMOGLOBIN 27.7 PG (27.0-31.0); MEAN CORPUSCULAR HGB CONC 33.9 g/dL (33.0-36.5); MEAN CORPUSCULAR VOLUME 81.5 FL (78-98); MEAN PLATELET VOLUME 6.5 FL (7.4-10.4); MONOCYTES % (AUTO) 6.2 % (2-12); NEUTROPHILS # (AUTO) 8.5 X10'3 (1.8-7.7); NEUTROPHILS % (AUTO) 76.5 % (42-75); PLATELET COUNT 504 X10'3 (140-440); RED BLOOD COUNT 3.47 X10'6 (4.70-6.10); RED CELL DISTRIBUTION WIDTH 14.8 % (11.5-14.5); WHITE BLOOD COUNT 11.1 X10'3 (4.5-11.0)
[2019-10-15 19:19] LABS: CLARITY,URINE CLEAR (Clear); COLOR,URINE YELLOW (Yellow); GLUCOSE, URINE NEGATIVE (Neg); KETONES,URINE NEGATIVE (Neg); LEUKOCYTE ESTERASE ,URINE NEGATIVE (Neg); NITRITES, URINE NEGATIVE (Neg); OCCULT BLOOD,URINE NEGATIVE (Neg); PROTEIN,URINE NEGATIVE (Neg); UROBILINOGEN,URINE 0.2 E.U/dL (0.2-1.0)
[2019-10-15 19:20] LABS: UA COLLECTION TYPE URINAL
[2019-10-15 19:39] LABS: ALANINE AMINOTRANSFERASE 23 U/L (12-78); ALBUMIN 2.8 G/DL (3.4-5.0); ALBUMIN/GLOBULIN RATIO 0.7 (1.1-1.5); ALKALINE PHOSPHATASE 104 IU/L (46-116); ANION GAP 6 (8-16); ASPARTATE AMINO TRANSFERASE 21 U/L (10-37); BILIRUBIN,TOTAL 0.2 MG/DL (0.1-1.0); BLOOD UREA NITROGEN 12 MG/DL (7-18); BUN/CREATININE RATIO 12.8 (5.4-32.0); CALCIUM 9.4 MG/DL (8.5-10.1); CHLORIDE 93 MMOL/L (99-107); CREATININE 0.94 MG/DL (0.60-1.10); GLUCOSE 117 MG/DL (70-104); POTASSIUM 4.3 MMOL/L (3.5-5.1); SODIUM 124 MMOL/L (135-145); TOTAL CARBON DIOXIDE 25.2 MMOL/L (24-32); TOTAL PROTEIN 7.1 G/DL (6.4-8.2); eGFR 82 ML/MIN
[2019-10-15] MEDS ORDERED: iohexol 300mg/ml 100ml inj. ONE (19:59)
[2019-10-15] MEDS ORDERED: piperacillin/tazo 3.375gm/50ml 50 ML IV ONE (21:00)
[2019-10-15] MEDS ORDERED: vancomycin/NS 1 GM ADD-VANTAGE 250 ML IV ONE (21:00)
[2019-10-15] MEDS ORDERED: temazepam 15mg capsule PO PRN (21:00)
[2019-10-15] MEDS ORDERED: METR-159 PO (21:20)
[2019-10-15] MEDS ORDERED: LEVO500T2 PO (21:20)
[2019-10-15] MEDS ORDERED: HYDR-4383 PO (21:21)
[2019-10-15] MEDS ORDERED: FLO0.4C PO (21:21)
[2019-10-15] MEDS ORDERED: morphine 2 MG/ML inj. syringe IV PRN ×2 (22:05)
[2019-10-15] MEDS ORDERED: HYDROcodone/acetaminophen 10/325mg tab PO PRN (22:05)
[2019-10-15] MEDS ORDERED: ondansetron/PF 4mg/2ml inj IV PRN (22:05)
[2019-10-15] MEDS ORDERED: magnesium 2GM in 50ml NS 50 ML IV PRN (22:05)
[2019-10-15] MEDS ORDERED: potassium Cl 20 mEq SR tablet PO PRN ×2 (22:05)
[2019-10-15] MEDS ORDERED: HYDROcodone/acetaminophen 5mg/325mg tablet PO PRN (22:05)
[2019-10-15] MEDS ORDERED: magnesium 4gm in 100ml NS 100 ML IV PRN (22:05)
[2019-10-15] MEDS ORDERED: acetaminophen 325mg tablet PO PRN ×2 (22:05)
[2019-10-15] MEDS ORDERED: magnesium Cl slow-release 64mg tablet PO PRN (22:05)
[2019-10-15] MEDS ORDERED: magnesium hydroxide 30ml (MOM) UD suspension PO PRN (22:05)
[2019-10-15] MEDS ORDERED: potassium CL 10mEq/100ml bag 100 ML IV PRN ×2 (22:05)
[2019-10-15] MEDS ORDERED: MESSAGE TO PHARMACY PO ONE (22:15)
[2019-10-15] MEDS ORDERED: insulin Lispro (HumaLOG) vial - multi-dose SQ SCH (22:15)
[2019-10-15] MEDS ORDERED: dextrose 50%-water 50ml dispensing syringe IV PRN ×2 (22:15)
[2019-10-15] MEDS ORDERED: glucagon, human recombinant 1mg kit SUBCUT PRN (22:15)
[2019-10-15] MEDS ORDERED: dextrose ORAL solution 15 GM/59 ML bottle PO PRN ×2 (22:15)
[2019-10-15] MEDS: normal saline 1000ml 1,000 ML IV SCH (22:16)
[2019-10-15 22:55] VITALS: BP 149/83
--- NOTE | 2019-10-15 22:55 | NUR ---
PATIENT ADMITTED TO ROOM 347B FROM ER FOR JAKE RECTAL ABSCESS, DIABETES AND CHRONIC PAIN SYNDROME. PLACED COMFORTABLE IN BED. VITAL SIGNS TAKEN AND RECORDED.
[2019-10-16] MEDS ORDERED: piperacillin/tazo 3.375gm/50ml 50 ML IV SCH
[2019-10-16 05:27] LABS: BASOPHILS % (AUTO) 0.4 % (0-1); EOSINOPHILS # (AUTO) 0.1 X10'3 (0-0.9); EOSINOPHILS % (AUTO) 1.8 % (0-6); HEMATOCRIT 26.9 % (42.0-52.0); HEMOGLOBIN 9.2 g/dl (14.0-17.9); LYMPHOCYTES # (AUTO) 1.9 X10'3 (1.1-4.8); LYMPHOCYTES % (AUTO) 26.5 % (21-51); MEAN CORPUSCULAR HEMOGLOBIN 27.6 PG (27.0-31.0); MEAN CORPUSCULAR HGB CONC 34.2 g/dL (33.0-36.5); MEAN CORPUSCULAR VOLUME 80.7 FL (78-98); MEAN PLATELET VOLUME 6.5 FL (7.4-10.4); MONOCYTES # (AUTO) 0.8 X10'3 (0-0.9); MONOCYTES % (AUTO) 10.7 % (2-12); NEUTROPHILS # (AUTO) 4.3 X10'3 (1.8-7.7); NEUTROPHILS % (AUTO) 60.6 % (42-75); PLATELET COUNT 487 X10'3 (140-440); RED BLOOD COUNT 3.33 X10'6 (4.70-6.10); RED CELL DISTRIBUTION WIDTH 14.9 % (11.5-14.5); WHITE BLOOD COUNT 7.2 X10'3 (4.5-11.0)
[2019-10-16 06:06] LABS: ALANINE AMINOTRANSFERASE 20 U/L (12-78); ALBUMIN 2.4 G/DL (3.4-5.0); ALBUMIN/GLOBULIN RATIO 0.6 (1.1-1.5); ALKALINE PHOSPHATASE 94 IU/L (46-116); ANION GAP 7 (8-16); ASPARTATE AMINO TRANSFERASE 22 U/L (10-37); BILIRUBIN,TOTAL 0.2 MG/DL (0.1-1.0); BLOOD UREA NITROGEN 7 MG/DL (7-18); CALCIUM 8.5 MG/DL (8.5-10.1); CHLORIDE 102 MMOL/L (99-107); CREATININE 0.87 MG/DL (0.60-1.10); GLUCOSE 93 MG/DL (70-104); MAGNESIUM 1.9 MG/DL (1.5-2.4); POTASSIUM 4.2 MMOL/L (3.5-5.1); SODIUM 132 MMOL/L (135-145); TOTAL CARBON DIOXIDE 22.8 MMOL/L (24-32); TOTAL PROTEIN 6.4 G/DL (6.4-8.2); eGFR 90 ML/MIN
--- NOTE | 2019-10-16 06:22 | NUR ---
Problems reprioritized. Patient report given, questions answered & plan of care reviewed with LEIGHTON CARBAJAL.
[2019-10-16 07:19] VITALS: BP 129/78
[2019-10-16] MEDS ORDERED: lactobacillus rhamnosus 10,000 MMU CELLS/CAPSULE PO SCH (08:00)
[2019-10-16] MEDS ORDERED: lisinopril 20mg tablet PO SCH (08:00)
[2019-10-16] MEDS ORDERED: pantoprazole 40mg Tablet.DR PO SCH (08:00)
[2019-10-16] MEDS ORDERED: docusate sod 100mg capsule PO SCH (08:00)
[2019-10-16] MEDS ORDERED: K and/or MAG REPLACEMENT MC SCH (08:00)
[2019-10-16] MEDS ORDERED: heparin, porcine 5000 units/ml vial SQ SCH (08:00)
[2019-10-16] MEDS ORDERED: VANCOmycin 1250MG/NS 250ml Bag 250 ML IV SCH ×2 (08:00)
[2019-10-16] MEDS ORDERED: levoFLOXACIN-Levaquin 750MG/D5 150 ML IV SCH (08:10)
[2019-10-16] MEDS: normal saline 1000ml 1,000 ML IV SCH (08:24)
[2019-10-16] MEDS ORDERED: METR-159 PO (10:55)
[2019-10-16] MEDS ORDERED: HYDR-4383 PO (10:55)
[2019-10-16] MEDS ORDERED: LEVO750T46 PO (10:55)
[2019-10-16 11:16] VITALS: BP 131/80
--- NOTE | 2019-10-16 12:58 | NUR ---
Reviewed discharge paperwork with pt. 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 IV DC'd , pressure bandage applied, no s/sx bleeding noting. Smoking cessation discussed and encouraged. Discussed proper use of sitz bath which was recommended BID. Sitz bath provided. Discussed discharge medications, pt. aware to [facility], which was e-scripted. Written [place] prescription provided- given to pt. Pt. said that he called his cousin for transport but that he wanted to finish eating his lunch. Since pt. is diabetic this is allowed. Diabetic survival skills provided per protocol. Will note when pt. leaves the floor.
--- NOTE | 2019-10-16 13:47 | NUR ---
Pt.'s cousin here to for transport. Pt. escorted in a w/c to downstairs by hospital staff member.
[2019-10-16] MEDS ORDERED: insulin glargine (Lantus) pen - multi-dose SQ SCH (21:00)
[2019-10-16] MEDS ORDERED: tamsulosin 0.4mg capsule PO SCH (21:00)
[2019-10-17] MEDS ORDERED: VANCOMYCIN LEVEL IV ONE (07:30)
== END 2019-10-16 13:50 | disposition home or self-care (01) | DRG 254 ==
LOC: ER 17:39 → ED HOLD 22:02 → SUR 3N 22:50
PROVIDERS: ADMIT Internal Medicine; ATTEND Family Medicine
PROC: BW2G1ZZ Computerized Tomography (CT Scan) of Pelvic Region using Low Osmolar Contrast (ICD-10-PCS; principal; 2019-10-15)
DX: K60.4 Rectal fistula (principal); E87.1 Hypo-osmolality and hyponatremia; F17.210 Nicotine dependence, cigarettes, uncomplicated; G89.4 Chronic pain syndrome; E11.9 Type 2 diabetes mellitus without complications; D64.9 Anemia, unspecified; I10 Essential (primary) hypertension; K62.89 Other specified diseases of anus and rectum; Z79.899 Other long term (current) drug therapy
CPT/HCPCS: 36415; 71045; 72193; 80053; 81003; 82948; 83036; 83605; 83735; 84145; 85025; 87040; 87081; 99285; G0378; J1200; J1644; J1815; J1956; J2270; J2405; J2543; J3370; J7030; Q9967